=== PATIENT | male | born 1990 | race African-American/Black ===

== ENCOUNTER 2019-01-10 08:55 | Emergency (ER) | payer OTHER ==
[~2019-01-10] VITALS: Ht 190.5 cm; Wt 113.4 kg
[2019-01-10 09:24] LABS: URINE BILIRUBIN NEGATIVE (Negative); URINE BLOOD NEGATIVE (Negative); URINE CLARITY CLEAR; URINE COLOR YELLOW; URINE GLUCOSE-RANDOM NEGATIVE (Negative); URINE KETONES NEGATIVE (Negative); URINE LEUKOCYTES-REFLEX NEGATIVE (Negative); URINE NITRITE-REFLEX NEGATIVE (Negative); URINE PROTEIN NEGATIVE (Negative); URINE SPECIFIC GRAVITY <= 1.005 (1.005-1.030); URINE UROBILINOGEN 0.2 E.U./dl (0.2-1.0)
[2019-01-10] MEDS ORDERED: DOXYCYCLINE 10100 M1 PO (09:37)
[2019-01-10 10:12] VITALS: BP 150/87
== END 2019-01-10 10:00 | disposition home or self-care (01) ==
LOC: M.ERS 08:55
PROVIDERS: Emergency Medicine Emergency Medical Services
DX: N34.2 Other urethritis (principal); F17.210 Nicotine dependence, cigarettes, uncomplicated